=== PATIENT | male | born 1990 | race Caucasian/White ===

== ENCOUNTER 2021-11-08 22:31 | Emergency (ER) | payer MEDICAID ==
[~2021-11-08] VITALS: Ht 175.3 cm; Wt 93.0 kg
[2021-11-08 22:35] VITALS: BP 116/76
--- NOTE | 2021-11-08 22:38 | NUR ---
TO LOBBY A/W BED AMBULATORY
--- NOTE | 2021-11-09 00:06 | NUR ---
Called first time- no show in lobby and outside.
--- NOTE | 2021-11-09 00:09 | NUR ---
Patient ambulated to bed 12.
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
[2021-11-09] MEDS ORDERED: KETOROLAC 60 MG/2 ML VIAL IM ONE (00:40)
--- NOTE | 2021-11-09 01:20 | NUR ---
Dr. Elizalde examining patient.
[2021-11-09] MEDS ORDERED: ACET-8386 PO (01:35)
[2021-11-09] MEDS ORDERED: IBUP-2213 PO (01:35)
--- NOTE | 2021-11-09 01:41 | NUR ---
Patient discharged with v/s stable. Written and verbal after care instructions given and explained. Patient alert, oriented and verbalized understanding of instructions. Ambulatory with steady gait. All questions addressed prior to discharge. ID band removed. Patient advised to follow up with PMD. Rx of MOTRIN AND NORCO given. Patient educated on indication of medication including possible reaction and side effects. Opportunity to ask questions provided and answered.
== END 2021-11-09 01:41 | disposition home or self-care (01) ==
LOC: MED 22:31
DX: S13.4XXA Sprain of ligaments of cervical spine, initial encounter (principal); M25.561 Pain in right knee; V89.2XXA Person injured in unspecified motor-vehicle accident, traffic, initial encounter; Y93.55 Activity, bike riding; Y92.89 Other specified places as the place of occurrence of the external cause; Y99.8 Other external cause status
CPT/HCPCS: 72040; 72100; 73562; 96372; 99284; J1885

== ENCOUNTER 2022-04-01 20:40 | Emergency (ER) | payer MEDICAID, OTHER ==
[~2022-04-01] VITALS: Ht 175.3 cm; Wt 88.5 kg
[~2022-04-01 20:40] MED LIST: ACET-8386 PO; IBUP-2213 PO
[2022-04-01 20:49] VITALS: BP 92/57
--- NOTE | 2022-04-01 20:55 | NUR ---
PT TAKEN TO BED 12
[2022-04-01] MEDS ORDERED: LIDOCAINE/EPI MPF 1%1:200000 30 ML VIAL INJ ONE (21:20)
[2022-04-01] MEDS ORDERED: BACITRACIN OINT 500 UNITS/GM PKT TP ONE (21:20)
--- NOTE | 2022-04-01 21:28 | NUR ---
Patient's laceration site irrigated with sterile water. Patient tolerated proceedure.
--- NOTE | 2022-04-01 22:25 | NUR ---
Dr. Mckenna examining patient.
[2022-04-01] MEDS ORDERED: ACET-10509 PO (22:29)
[2022-04-01] MEDS ORDERED: BACI1PAC6 TP (22:29)
--- NOTE | 2022-04-01 22:40 | NUR ---
Patient declined TDAP Vaccine administration. Patient educated on risk vs benifits of TDAP vaccine. Patient continued to decline administration of vaccine. TDAP vaccine medication properly disposed of.
--- NOTE | 2022-04-01 22:50 | NUR ---
Patient lying in bed, A/Ox4, chest rise and fall symmetrical, no c/o pain or s/s of discomfort.
[2022-04-01 23:04] VITALS: BP 110/53
== END 2022-04-01 23:08 | disposition home or self-care (01) ==
LOC: MED 20:40
DX: S61.411A Laceration without foreign body of right hand, initial encounter (principal); X58.XXXA Exposure to other specified factors, initial encounter; Y93.89 Activity, other specified; Y92.89 Other specified places as the place of occurrence of the external cause; Y99.8 Other external cause status
CPT/HCPCS: 12002; 73130; 99283; J2001; Q0092; 90715